=== PATIENT | female | born 1995 | race Caucasian/White ===

== ENCOUNTER 2020-09-07 23:28 | Inpatient (IN) ==
[2020-09-07] MEDS ORDERED: Ondansetron 4 MG/2 ML VIAL IVP PRN (23:45)
[2020-09-07] MEDS ORDERED: Naloxone 0.4 MG/ML INJ IVP PRN (23:45)
[2020-09-07] MEDS ORDERED: Azithromycin 500 MG in 0.9 % Sodium Chloride 250 ML IVPB ONE (23:45)
[2020-09-07] MEDS ORDERED: Oxytocin 20 units/ LR 1000 mL 20 UNIT/1,000 ML BAG IVC SCH (23:45)
[2020-09-07] MEDS ORDERED: Famotidine 20 MG/2 ML VIAL IVP PRN (23:45)
[2020-09-07] MEDS ORDERED: Metoclopramide 10 MG/2 ML VIAL IVP PRN (23:45)
[2020-09-07] MEDS ORDERED: Lidocaine 1% 20 ML MDV INFILT PRN (23:45)
[2020-09-07] MEDS ORDERED: *HR* Nalbuphine 10 MG/ML AMPUL IV PRN (23:45)
[2020-09-08 00:08] LABS: Basophils % 0.4 %; Eosinophils % 0.3 %; Hematocrit 34.5 % (35.3-44.9); Hemoglobin 11.7 g/dL (11.5-15.4); Immature Granulocytes % 0.6 % (0-4); Lymphocytes # 1.8 K/mcL (0.6-4.6); Lymphocytes % 16.4 %; Mean Corpuscular HGB Conc 33.9 g/dL (31.6-35.5); Mean Corpuscular Hemoglobin 32.4 pg (28.0-33.3); Mean Corpuscular Volume 95.6 fL (83.0-100.0); Mean Platelet Volume 11.2 fL (9.4-12.4); Monocytes # 0.8 K/mcL (0.0-1.3); Monocytes % 7.3 %; Neutrophils # 8.4 K/mcL (1.6-8.9); Platelet Count 224 K/mcL (140-400); Red Blood Count 3.61 M/mcL (3.82-4.97); Red Cell Distribution Width 12.9 % (11.5-14.5); White Blood Count 11.2 K/mcL (4.3-11.1)
[2020-09-08 00:17] LABS: Amphetamine Screen,Urine Negative ng/mL (Cutoff=1000); Barbiturate Screen,Urine Negative ng/mL (Cutoff=200); Benzodiazepines Screen,Urine Negative ng/mL (Cutoff=200); Cannabinoid Screen,Urine Negative ng/mL (Cutoff = 50); Cocaine Screen,Urine Negative ng/mL (Cutoff= 300); Opiate Screen,Urine Negative ng/mL (Cutoff=300); Phencyclidine Screen,Urine Negative ng/mL (Cutoff=25)
[2020-09-08] MEDS: Ringers Solution, Lactated 1,000 ML IVC SCH ×3 (00:53→15:09)
[2020-09-08] MEDS: miSOPROStoL 25 MCG TABLET PO PRN ×2 (00:53→09:03)
[2020-09-08 01:54] LABS: Influenza A PCR Negative (Negative); Influenza B PCR Negative (Negative); Resp. Syncytial Virus PCR Negative (Negative)
[2020-09-08 01:55] LABS: SARS-CoV-2 by PCR (In House) Negative (Negative)
[2020-09-08] MEDS ORDERED: EPHEDrine 50 MG/ML VIAL IVP PRN (10:18)
[2020-09-08] MEDS ORDERED: Ropivacaine/PF 0.2% 20 ML VIAL EP ONE (10:18)
[2020-09-08] MEDS ORDERED: Naloxone 0.4 MG/ML INJ IVP PRN (10:18)
[2020-09-08] MEDS ORDERED: Ondansetron 4 MG/2 ML VIAL IVP PRN (10:18)
[2020-09-08] MEDS ORDERED: Epidural Premix (fent/bupiv) 110 ML EP SCH (10:30)
[2020-09-08] MEDS ORDERED: 0.9 % Sodium Chloride 500 ML ONE ×2 (13:54→14:44)
[2020-09-09] MEDS ORDERED: Oxytocin 20 units/ LR 1000 mL 20 UNIT/1,000 ML BAG IVC SCH (01:20)
[2020-09-09] MEDS ORDERED: Measles/Mumps/Rubella Vacc 0.5 ML VIAL SQ PRN (01:20)
[2020-09-09] MEDS ORDERED: Acetaminophen 325 MG TABLET PO PRN (01:20)
[2020-09-09] MEDS ORDERED: Rho Immune Globulin 1,500 UNIT SYRINGE IM PRN (01:20)
[2020-09-09] MEDS: Ibuprofen 600 MG TABLET PO PRN ×3 (01:33→20:33)
[2020-09-09 04:28] LABS: Basophils % 0.2 %; Hematocrit 22.3 % (35.3-44.9); Hemoglobin 7.5 g/dL (11.5-15.4); Immature Granulocytes % 0.6 % (0-4); Lymphocytes # 1.1 K/mcL (0.6-4.6); Lymphocytes % 6.4 %; Mean Corpuscular HGB Conc 33.6 g/dL (31.6-35.5); Mean Corpuscular Volume 98.2 fL (83.0-100.0); Mean Platelet Volume 11.3 fL (9.4-12.4); Monocytes % 5.8 %; Neutrophils # 15.3 K/mcL (1.6-8.9); Platelet Count 174 K/mcL (140-400); Red Blood Count 2.27 M/mcL (3.82-4.97); Red Cell Distribution Width 13.1 % (11.5-14.5); White Blood Count 17.6 K/mcL (4.3-11.1)
[2020-09-09] MEDS: Prenatal Vit/FA 1 EACH TABLET PO SCH (08:05)
[2020-09-09] MEDS ORDERED: NON-FORMULARY MEDICATION 1 EACH EACH (Prenat 115/Iron Fum/Folic/Dss [Prenatal 19 Tablet] 1 PO SCH (09:00)
[2020-09-09] MEDS ORDERED: polyethylene glycoL 3350 17 GM POWD.PACK PO PRN (09:17)
[2020-09-09] MEDS: *HR* OxyCODONE/APAP 5/325 TABLET PO PRN ×2 (10:57→18:00)
[2020-09-09] MEDS ORDERED: 0.9 % Sodium Chloride 500 ML ONE ×2 (11:41→15:05)
[2020-09-09] MEDS ORDERED: Benzocaine/Menthol 56 GM AEROSOL SPRAY TP PRN (20:23)
[2020-09-09 22:37] LABS: Hematocrit 24.1 % (35.3-44.9); Hemoglobin 8.1 g/dL (11.5-15.4)
[2020-09-10] MEDS: *HR* OxyCODONE/APAP 5/325 TABLET PO PRN ×3 (00:14→12:10)
[2020-09-10 05:14] LABS: Basophils % 0.2 %; Eosinophils # 0.1 K/mcL (0.0-0.6); Eosinophils % 0.4 %; Hematocrit 23.5 % (35.3-44.9); Immature Granulocytes % 0.8 % (0-4); Lymphocytes # 2.3 K/mcL (0.6-4.6); Lymphocytes % 13.3 %; Mean Corpuscular Hemoglobin 32.1 pg (28.0-33.3); Mean Corpuscular Volume 94.4 fL (83.0-100.0); Mean Platelet Volume 11.1 fL (9.4-12.4); Neutrophils # 13.4 K/mcL (1.6-8.9); Platelet Count 163 K/mcL (140-400); Red Blood Count 2.49 M/mcL (3.82-4.97); Red Cell Distribution Width 15.7 % (11.5-14.5); Segmented Neutrophils % 79.3 %; White Blood Count 16.9 K/mcL (4.3-11.1)
[2020-09-10] MEDS: Ibuprofen 600 MG TABLET PO PRN ×2 (06:05→12:10)
[2020-09-10 08:28] VITALS: BP 116/85
[2020-09-10] MEDS: Prenatal Vit/FA 1 EACH TABLET PO SCH (09:41)
== END 2020-09-10 16:25 | disposition home or self-care (01) | DRG 806 ==
LOC: 1NENULAB 23:28 → 1NENUOBS 09-09 01:31
PROVIDERS: ADMIT Obstetrics & Gynecology; ATTEND Obstetrics & Gynecology